=== PATIENT | female | born 1950 | race Caucasian/White ===

== ENCOUNTER 2019-02-24 18:00 | Emergency (ER) | payer MEDICARE, BC ==
[2019-02-24] MEDS ORDERED: Lidocaine 1% 10 ML MDV INJECT ONE (18:22)
[2019-02-24] MEDS ORDERED: Bupivacaine 0.5% 10 ML SDV INJECT ONE (18:25)
--- NOTE | 2019-02-24 18:30 | EDM.PDOC ---
ED HPI GENERAL MEDICAL PROBLEM - General Chief Complaint: Laceration Stated Complaint: R RING FINGER LAC Time Seen by Provider: 02/24/19 18:06 Source of Information: Reports: Patient, RN Notes Reviewed History Limitations: Reports: No Limitations - History of Present Illness INITIAL COMMENTS - FREE TEXT/NARRATIVE: Patient is a 68-year-old female who presents to the ED for the evaluation of a right ring finger laceration. The patient states that she was getting some clothing [place] on a makeshift metal clothing rack when a part of the clothing rack came undone and ended up lacerating her right ring finger. This is the medial portion, over the PIP joint. 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 She is able to move it the same amount she could before. There is some mild bleeding, however is under control at this time. She believes she is up-to-date on her tetanus booster. The laceration is approximately 3cm in length and is curvilinear, with a skin flap. The entire laceration is essentially a skin flap. The patient notes that she is right-hand dominant. Right Finger-Ring Pain Score (Numeric/FACES): 4 - Related Data Allergies Allergy/AdvReac Type Severity Reaction Status Date / Time No Known Allergies Allergy Verified 02/24/19 18:09 Home Meds: Home Meds Hydroxyurea [Hydrea] 500 mg PO DAILY 02/24/19 [History] Past Medical History - Past Health History Medical/Surgical History: Denies Medical/Surgical History Hematologic History: Reports: Polycythemia Social & Family History - Tobacco Use Smoking Status *Q: Never Smoker ED ROS GENERAL - Review of Systems Review Of Systems: See Below Constitutional: Reports: No Symptoms HEENT: Reports: No Symptoms Respiratory: Reports: No Symptoms Cardiovascular: Reports: No Symptoms Endocrine: Reports: No Symptoms GI/Abdominal: Reports: No Symptoms : Reports: No Symptoms Musculoskeletal: Reports: No Symptoms Skin: Reports: Wound (3cm curvilinear lac to medial PIP on R ring finger.) Neurological: Reports: No Symptoms. Denies: Numbness, Tingling Psychiatric: Reports: No Symptoms Hematologic/Lymphatic: Reports: No Symptoms ED EXAM, SKIN/RASH Exam: See Below Exam Limited By: No Limitations General Appearance: Alert, WD/WN, No Apparent Distress Respiratory/Chest: No Respiratory Distress, Lungs Clear, Normal Breath Sounds, No Accessory Muscle Use, Chest Non-Tender Cardiovascular: Normal Peripheral Pulses, Regular Rate, Rhythm, No Murmur Extremities: Normal Inspection, Normal Range of Motion (within her normal capabilities), Normal Capillary Refill Neurological: Oriented, Normal Cognition, No Motor/Sensory Deficits Psychiatric: Normal Affect, Normal Mood Skin: Warm, Dry, Normal Color, No Rash, Wound/Incision (3cm curvilinear lac to medial PIP on R ring finger.) ED SKIN PROCEDURES - Laceration/Wound Repair Right Medial Digit - 4th (Ring) Lac/Wound length In cm: 3 Appearance: Subcutaneous, Irregular (curvilinear), Clean Distal NVT: Neuro & Vascular Intact, No Tendon Injury Anesthetic Type: Digital Local Anesthesia - Lidocaine (Xylocaine): Other (1% plain and 0.5% Bupivicaine) Local Anesthesia - Bupivicaine (Marcaine): 0.5% Plain Local Anesthetic Volume: Other (8) Skin Prep: Chlorhexidine (Hibiciens) Saline Irrigation (cc's): 250 (copious) Exploration/Debridement/Repair: Wound Explored, In a Bloodless Field, Explored to Base, Other (the laceration is essentially one large skin flap) Closed with: Sutures Suture Size: other (5.0) # of Sutures: 8 Suture Type: Prolene, Interrupted, Simple Sterile Dressing Applied: Nurse Tetanus Status Addressed: Yes Complications: No Course - Vital Signs Last Recorded V/S: Last Vital Signs Temp 98.5 F 02/24/19 18:10 Pulse 88 02/24/19 18:10 Resp 18 02/24/19 18:10 BP 148/91 H 02/24/19 18:10 Pulse Ox 100 02/24/19 18:10 - Orders/Labs/Meds Meds: Medications Discontinued Medications Generic Name Dose Route Start Last Admin Trade Name Nicholas PRN Reason Stop Dose Admin Bupivacaine HCl 10 ml 02/24/19 18:25 02/24/19 18:45 Sensorcaine-Mpf 0.5% INJECT 02/24/19 18:26 10 ml ONETIME ONE Administration Lidocaine HCl 10 ml 02/24/19 18:22 02/24/19 18:45 Xylocaine 1% INJECT 02/24/19 18:23 10 ml ONETIME ONE Administration Departure - Departure Time of Disposition: 19:09 Disposition: Home, Self-Care 01 Condition: Fair Clinical Impression: Laceration of right ring finger Qualifiers: Encounter type: initial encounter Damage to nail status: without damage Foreign body presence: without foreign body Qualified Code(s): S61.214A - Laceration without foreign body of right ring finger without damage to nail, initial encounter - Discharge Information *PRESCRIPTION DRUG MONITORING PROGRAM REVIEWED*: No *COPY OF PRESCRIPTION DRUG MONITORING REPORT IN PATIENT SHEA: No Instructions: Stitches, [place], or Adhesive Wound Closure, [id number] Referrals: Matthias Banuelos PA [Primary Care Provider] - Forms: ED Department Discharge Additional Instructions: You have been evaluated in the ED for your laceration. Sutures will need to stay in for 14 days (03/07/14) You may return to the ED or clinic for removal. Please keep this area clean and dry, you may cleanse with regular soap and water. No vigorous scrubbing. Please return to ED if your symptoms change or worsen.
== END 2019-02-24 19:20 | disposition home or self-care (01) ==
LOC: JD.ED 18:00
DX: S61.214A Laceration without foreign body of right ring finger without damage to nail, initial encounter (principal); Z79.899 Other long term (current) drug therapy; W26.8XXA Contact with other sharp object(s), not elsewhere classified, initial encounter
CPT/HCPCS: 12002; 99282; J2001; J3490

== ENCOUNTER 2019-11-17 12:35 | Inpatient (IN) | payer MEDICARE, BC, OTHER ==
[2019-11-17] MEDS ORDERED: Sodium Chloride 0.9% 10 ML Syringe FLUSH PRN (13:18)
[2019-11-17] MEDS ORDERED: Diltiazem 50 MG/10 ML SDV IVPUSH ONE (13:41)
--- NOTE | 2019-11-17 13:45 | EDM.PDOC ---
ED HPI GENERAL MEDICAL PROBLEM - General Chief Complaint: Cardiovascular Problem Stated Complaint: SOB Time Seen by Provider: 11/17/19 13:17 Source of Information: Reports: Patient, RN Notes Reviewed History Limitations: Reports: No Limitations - History of Present Illness INITIAL COMMENTS - FREE TEXT/NARRATIVE: Patient is a 69-year-old female who presents to the ED for evaluation of her ongoing shortness of breath. Patient notes she has been having issues with increased dyspnea on exertion for the past month or so. She states that she walks daily, and notes that this is getting increasingly bothersome for her, she states that she gets more winded with activity, and sometimes even at rest. She states that a few nights ago she had some shortness of breath, and some chest discomfort/feelings of her heart beating rapidly while she was sleeping, she states that she elevated her head and this seemed to help some of the symptoms. Patient notes she is a fairly healthy active lady, and has not had any issues with this prior to this. She denies any cardiac history or lung history. She takes only an aspirin on a daily basis for any sort of blood thinning/anticoagulation. She denies history of atrial fibrillation. Patient complains of shortness of breath with exercise, sometimes at rest, increased generalized fatigue. She is not complaining of any chest pain, left arm/jaw pain, or any nausea/vomiting/diarrhea at today's visit. Blood pressure is within normal limits at 114/94. Heart rate is steady at 143, patient does not appear to be in any distress at this time. - Related Data Allergies Allergy/AdvReac Type Severity Reaction Status Date / Time No Known Allergies Allergy Verified 02/24/19 18:09 Home Meds: Home Meds Hydroxyurea [Hydrea] 500 mg PO DAILY 02/24/19 [History] Ascorbate Calcium [Vitamin C] 500 mg PO DAILY 11/17/19 [History] Aspirin [Halfprin] 81 mg PO DAILY 11/17/19 [History] Cholecalciferol (Vitamin D3) [Vitamin D3] 1,000 unit PO DAILY 11/17/19 [History] Fish Oil/[place]-3 Fatty Acids [Fish Oil 1,000 MG] 1,000 mg PO DAILY 11/17/19 [ History] Progesterone, Micronized [Progesterone] 200 mg PO DAILY 11/17/19 [History] Past Medical History Hematologic History: Reports: Polycythemia, Other (See Below) Other Hematologic History: hydrea Social & Family History - Tobacco Use Smoking Status *Q: Never Smoker - Caffeine Use Caffeine Use: Reports: Coffee, Tea - Recreational Drug Use Recreational Drug Use: No ED ROS GENERAL - Review of Systems Review Of Systems: See Below Constitutional: Denies: Fever, Chills Respiratory: Reports: Shortness of Breath. Denies: Cough Cardiovascular: Reports: Dyspnea on Exertion, Palpitations. Denies: Chest Pain , Blood Pressure Problem, Edema, Lightheadedness, Syncope GI/Abdominal: Denies: Abdominal Pain, Constipation, Diarrhea, Nausea, Vomiting ED EXAM, GENERAL - Physical Exam Exam: See Below Exam Limited By: No Limitations General Appearance: Alert, WD/WN, No Apparent Distress Eye Exam: Bilateral Eye: EOMI, Normal Inspection, PERRL Ears: Normal External Exam Nose: Normal Inspection Throat/Mouth: Normal Inspection, Normal Lips, Normal Teeth, Normal Gums, Normal Oropharynx, Normal Voice, No Airway Compromise Head: Atraumatic, Normocephalic Neck: Normal Inspection Respiratory/Chest: No Respiratory Distress, Lungs Clear, Normal Breath Sounds, No Accessory Muscle Use, Chest Non-Tender Cardiovascular: Normal Peripheral Pulses, No Edema, Tachycardia, Other ( regularly irregular rhythm) GI/Abdominal: Normal Bowel Sounds, Soft, Non-Tender, No Distention, No Mass Extremities: Normal Inspection, Normal Capillary Refill Neurological: Alert, Oriented, Normal Cognition, No Motor/Sensory Deficits Psychiatric: Normal Affect, Normal Mood Skin Exam: Warm, Dry, Intact, Normal Color, No Rash EKG INTERPRETATION EKG Date: 11/17/19 Time: 13:06 Rhythm: NSR Rate (Beats/Min): 143 [place]: Normal P-Wave: Present QRS: Normal ST-T: Normal QT: Prolonged (prolonged) Comparison: Change From Previous EKG EKG Interpretation Comments: Atrial fibrillation noted with regularly irregular rhythm, no acute ischemia noted. Reviewed by myself and Dr. Min. Course - Vital Signs Last Recorded V/S: Last Vital Signs Temp 97.6 F 11/17/19 13:01 Pulse 143 H 11/17/19 13:01 Resp 20 11/17/19 13:01 BP 114/94 H 11/17/19 13:01 Pulse Ox 93 L 11/17/19 13:01 - Orders/Labs/Meds Orders: Active Orders 24 hr Category Date Time Status EKG Documentation Completion [RC] STAT Care 11/17/19 13:18 Active Peripheral IV Care [RC] . DIRECTED Care 11/17/19 13:18 Active PHOSPHORUS [CHEM] Stat Lab 11/17/19 16:17 Ordered T4 FREE [CHEM] Stat Lab 11/17/19 13:10 Received Diltiazem 125 mg Med 11/17/19 13:45 Active Sodium Chloride 0.9% [Normal Saline] 100 ml IV TITRATE Sodium Chloride 0.9% [Saline Flush] Med 11/17/19 13:18 Active 10 ml FLUSH ASDIRECTED PRN Peripheral IV Insertion Adult [OM.PC] Stat Oth 11/17/19 13:18 Ordered Medication Orders Diltiazem HCl 125 mg/ Sodium (Chloride) 125 mls @ 10 mls/hr IV TITRATE TERRENCE; Protocol Last Admin: 11/17/19 14:31 Dose: 10 mg/hr, 10 mls/hr Sodium Chloride (Saline Flush) 10 ml FLUSH ASDIRECTED PRN PRN Reason: Keep Vein Open Last Admin: 11/17/19 15:34 Dose: 10 ml Labs: Laboratory Tests 11/17/19 11/17/19 11/17/19 Range/Units 13:10 13:10 13:10 WBC 5.73 (3.98-10.04) K/mm3 RBC 4.28 (3.98-5.22) M/mm3 Hgb 13.5 (11.2-15.7) gm/dl Hct 42.9 (34.1-44.9) % MCV 100.2 H (79.4-94.8) fl MCH 31.5 (25.6-32.2) pg MCHC 31.5 L (32.2-35.5) g/dl RDW Std Deviation 47.8 H (36.4-46.3) fL Plt Count 351 (182-369) K/mm3 MPV 11.6 (9.4-12.3) fl Neutrophils % (Manual) 66 H (40-60) % Band Neutrophils % 0 (0-10) % Lymphocytes % (Manual) 24 (20-40) % Atypical Lymphs % 0 % Monocytes % (Manual) 8 (2-10) % Eosinophils % (Manual) 2 (0.7-5.8) % Basophils % (Manual) 0 L (0.1-1.2) Platelet Estimate Adequate Anisocytosis 1+ slight Macrocytosis 2+ moderate RBC Morph Comment Not Reportable PT 11.0 (9.7-12.0) SECONDS INR 1.01 APTT 26 (22-31) SECONDS Sodium 145 (136-145) mEq/L Potassium 4.4 (3.5-5.1) mEq/L Chloride 109 H (98-107) mEq/L Carbon Dioxide 23 (21-32) mEq/L Anion Gap 17.4 H (5-15) BUN 16 (7-18) mg/dL Creatinine 0.9 (0.55-1.02) mg/dL Est Cr Clr Drug Dosing 55.23 mL/min Estimated GFR (MDRD) > 60 (>60) mL/min BUN/Creatinine Ratio 17.8 (14-18) Glucose 126 H (80-115) mg/dL Calcium 9.1 (8.5-10.1) mg/dL Magnesium 1.8 (1.8-2.4) mg/dl Total Bilirubin 0.8 (0.2-1.0) mg/dL AST 25 (15-37) U/L ALT 68 H (14-59) U/L Alkaline Phosphatase 58 (46-116) U/L Troponin I < 0.017 (0.00-0.056) ng/mL NT-Pro-B Natriuret Pep (0-125) pg/mL Total Protein 7.0 (6.4-8.2) g/dl Albumin 3.7 (3.4-5.0) g/dl Globulin 3.3 gm/dL Albumin/Globulin Ratio 1.1 (1-2) TSH 3rd Generation 7.203 H (0.358-3.74) uIU/mL 11/17/19 Range/Units 13:10 WBC (3.98-10.04) K/mm3 RBC (3.98-5.22) M/mm3 Hgb (11.2-15.7) gm/dl Hct (34.1-44.9) % MCV (79.4-94.8) fl MCH (25.6-32.2) pg MCHC (32.2-35.5) g/dl RDW Std Deviation (36.4-46.3) fL Plt Count (182-369) K/mm3 MPV (9.4-12.3) fl Neutrophils % (Manual) (40-60) % Band Neutrophils % (0-10) % Lymphocytes % (Manual) (20-40) % Atypical Lymphs % % Monocytes % (Manual) (2-10) % Eosinophils % (Manual) (0.7-5.8) % Basophils % (Manual) (0.1-1.2) Platelet Estimate Anisocytosis Macrocytosis RBC Morph Comment PT (9.7-12.0) SECONDS INR APTT (22-31) SECONDS Sodium (136-145) mEq/L Potassium (3.5-5.1) mEq/L Chloride (98-107) mEq/L Carbon Dioxide (21-32) mEq/L Anion Gap (5-15) BUN (7-18) mg/dL Creatinine (0.55-1.02) mg/dL Est Cr Clr Drug Dosing mL/min Estimated GFR (MDRD) (>60) mL/min BUN/Creatinine Ratio (14-18) Glucose (80-115) mg/dL Calcium (8.5-10.1) mg/dL Magnesium (1.8-2.4) mg/dl Total Bilirubin (0.2-1.0) mg/dL AST (15-37) U/L ALT (14-59) U/L Alkaline Phosphatase (46-116) U/L Troponin I (0.00-0.056) ng/mL NT-Pro-B Natriuret Pep 2020 H (0-125) pg/mL Total Protein (6.4-8.2) g/dl Albumin (3.4-5.0) g/dl Globulin gm/dL Albumin/Globulin Ratio (1-2) TSH 3rd Generation (0.358-3.74) uIU/mL Meds: Medications Generic Name Dose Route Start Last Admin Trade Name Freq PRN Reason Stop Dose Admin Diltiazem HCl 125 mg/ Sodium 125 mls @ 10 mls/hr 11/17/19 13:45 11/17/19 14: 31 Chloride IV 10 mg/hr TITRATE TERRENCE 10 mls/hr Administration Protocol 10 MG/HR Sodium Chloride 10 ml 11/17/19 13:18 11/17/19 15:34 Saline Flush FLUSH 10 ml ASDIRECTED PRN Administration Keep Vein Open Discontinued Medications Generic Name Dose Route Start Last Admin Trade Name Nicholas PRN Reason Stop Dose Admin Diltiazem HCl 10 mg 11/17/19 13:41 11/17/19 13:50 Cardizem IVPUSH 11/17/19 13:42 10 mg ONETIME ONE Administration Furosemide 40 mg 11/17/19 14:41 11/17/19 15:34 Lasix IVPUSH 11/17/19 14:42 40 mg NOW ONE Administration - Re-Assessments/Exams Free Text/Narrative Re-Assessment/Exam: 11/17/19 13:48 Patient presents to the ED for evaluation of her ongoing shortness of breath. EKG, does demonstrate atrial fibrillation at a rate of 143, no obvious signs of ischemia. This is new onset for the patient, she does not relate a history of this. Further labs will be obtained as well, I did talk case over with Dr. Min, and he suggests 10 mg Cardizem bolus, and 10 mg Cardizem drip to be started to try to control rate at this time, with the possibility of ICU admission needed. 11/17/19 16:19 The patient's laboratory evaluation demonstrated an elevated BNP at 2020, elevated TSH at over 7, troponins negative, and no other metabolic abnormalities or abnormalities on the CBC were noted. Patient's case was discussed with Dr. Rueda, for possible admission, and she does tentatively except for ICU admission at this time. She will be in to evaluate the patient. Of note patient has responded nicely to the Cardizem, her heart rate is in the low 100s systolically, and her blood pressure is stable. Departure - Departure Time of Disposition: 16:20 Disposition: Admitted As Inpatient 66 Condition: Fair Clinical Impression: Atrial fibrillation, new onset Referrals: Gris Bridges MD [Primary Care Provider] - Forms: ED Department Discharge Sepsis Event Note - Evaluation Sepsis Screening Result: No Definite Risk - Focused Exam Vital Signs: Vital Signs Temp Pulse Resp BP Pulse Ox 11/17/19 13:01 97.6 F 143 H 20 114/94 H 93 L Date Exam was Performed: 11/17/19 Time Exam was Performed: 16:19 - My Orders Last 24 Hours: My Active Orders 11/17/19 13:18 EKG Documentation Completion [RC] STAT Peripheral IV Care [RC] . DIRECTED Sodium Chloride 0.9% [Saline Flush] 10 ml FLUSH ASDIRECTED PRN Peripheral IV Insertion Adult [OM.PC] Stat 11/17/19 13:45 Diltiazem 125 mg Sodium Chloride 0.9% [Normal Saline] 100 ml IV TITRATE 11/17/19 16:17 PHOSPHORUS [CHEM] Stat - Assessment/Plan Last 24 Hours: My Active Orders 11/17/19 13:18 EKG Documentation Completion [RC] STAT Peripheral IV Care [RC] . DIRECTED Sodium Chloride 0.9% [Saline Flush] 10 ml FLUSH ASDIRECTED PRN Peripheral IV Insertion Adult [OM.PC] Stat 11/17/19 13:45 Diltiazem 125 mg Sodium Chloride 0.9% [Normal Saline] 100 ml IV TITRATE 11/17/19 16:17 PHOSPHORUS [CHEM] Stat
[2019-11-17] MEDS: Diltiazem 125 MG in Sodium Chloride 0.9% 100 ML IV SCH (14:31)
--- NOTE | 2019-11-17 14:39 | CR ---
Chest: PA and lateral views of the chest were obtained. Comparison: No prior chest x-ray is available. Heart is enlarged. Pulmonary vessels are felt to be slightly congested. Lungs otherwise are clear. Bony structures appear within normal limits for the patient's age. Impression: 1. Findings suspicious for mild CHF. Diagnostic code #3 This report was dictated in MDT
[2019-11-17] MEDS ORDERED: Furosemide 40 MG/4 ML VIAL IVPUSH ONE (14:41)
[2019-11-17] MEDS ORDERED: Ondansetron 4 MG Tab.DIS PO PRN (16:42)
[2019-11-17] MEDS ORDERED: Ondansetron 4 MG/2 ML SDV IV PRN (16:42)
--- NOTE | 2019-11-17 16:46 | PCM.HP.2 ---
H&P History of Present Illness - General Date of Service: 11/17/19 Admit Problem/Dx: Admission Diagnosis/Problem Admission Diagnosis/Problem Atrial fibrillation - History of Present Illness Initial Comments - Free Text/Narative: This is a 69 year old female with past medical history of p vera on hydroxyurea who comes to the ED complaining of worsening shortness of breath and chest pain for a couple of days. As per patient she is very active with daily walks and/or bicycle rides and she was in her usual health up until early September. She notes that she started having worsening shortness of breath and inability to complete usual walking distance as well as fatigue, which she attributed to being out of shape adter gaining a couple of pounds over the winter. These symptoms however did not subside and she started noticing her fitbit was having higher heart rates than normal. The past 2 days she has been having palpitations and chest discomfort. She described the chest discomfort as pressure, located in center chest, without radiation graded 5/10, lasting for about an hour, went away with sitting down, happened while she was sleeping associated with increased fatigue. / Once she noticed she wasn't getting better she called her PCP today who referred her to ED for further evaluation. Headache Pain Score (Numeric/FACES): 2 - Related Data Allergies/Adverse Reactions: Allergies Allergy/AdvReac Type Severity Reaction Status Date / Time No Known Allergies Allergy Verified 11/17/19 18:04 Home Medications: Home Meds Hydroxyurea [Hydrea] 500 mg PO DAILY 02/24/19 [History] Ascorbate Calcium [Vitamin C] 500 mg PO DAILY 11/17/19 [History] Aspirin [Halfprin] 81 mg PO DAILY 11/17/19 [History] Cholecalciferol (Vitamin D3) [Vitamin D3] 1,000 unit PO DAILY 11/17/19 [History] Fish Oil/[place]-3 Fatty Acids [Fish Oil 1,000 MG] 1,000 mg PO DAILY 11/17/19 [ History] Progesterone, Micronized [Progesterone] 150 mg PO DAILY 11/17/19 [History] Past Medical History - Past Health History Medical/Surgical History: Denies Medical/Surgical History Hematologic History: Reports: Polycythemia, Other (See Below) Other Hematologic History: hydrea Social & Family History - Tobacco Use Smoking Status *Q: Never Smoker - Caffeine Use Caffeine Use: Reports: Coffee, Tea - Recreational Drug Use Recreational Drug Use: No H&P Review of Systems - Review of Systems: Review Of Systems: See Below General: Reports: Malaise, Weakness, Fatigue. Denies: Fever, Chills, Night Sweats, Diaphoresis, Decreased Appetite, Weight Loss, Weight Gain HEENT: Denies: Dysphasia, Ear Pain, Eye Pain, Glasses, Headaches, Hearing Changes, Rhinitis, Post Nasal Drip, Sinus Congestion, Sore Throat, Vertigo, Visual Changes Pulmonary: Reports: Shortness of Breath. Denies: Wheezing, Pleuritic Chest Pain , Cough, Sputum, Hemoptysis Cardiovascular: Reports: Chest Pain, Palpitations, Dyspnea on Exertion. Denies : Orthopnea, PND, Edema, Lightheadedness, Syncope, Claudication, Blood Pressure Problem Gastrointestinal: Denies: Abdominal Pain, Anorexia, Black Stool, Bloody Stool, Constipation, Diarrhea, Decreased Appetite, Difficulty Swallowing, Distension, Flatus, Hematemesis, Hematochezia, Melena, Nausea, Vomiting Genitourinary: Denies: Dysuria, Frequency, Burning, Pain, Urgency, Incontinence , Hematuria Musculoskeletal: Denies: Joint Pain, Joint Swelling, Muscle Pain, Muscle Stiffness Skin: Denies: Cyanosis, Jaundice, Mottled, Pallor, Diaphoresis Psychiatric: Denies: Confusion, Depression, Mood Lability, Anxiety Neurological: Denies: Confusion, Dizziness, Headache, Numbness, Paresthesia Exam - Exam Exam: See Below - Vital Signs Vital Signs: Last Vital Signs Temp 97.6 F 11/17/19 13:01 Pulse 143 H 11/17/19 13:01 Resp 20 11/17/19 13:01 BP 114/94 H 11/17/19 13:01 Pulse Ox 93 L 11/17/19 13:01 Weight: 92.533 kg - Exam General: Alert, Oriented. No: Cooperative, Mild Distress, Moderate Distress, Severe Distress HEENT: Conjunctiva Clear, EACs Clear, EOMI, Mucosa Moist & [place] Neck: Supple, Trachea Midline, +2 Carotid Pulse wo Bruit, Full Range of Motion. No: Lymphadenopathy Lungs: Clear to Auscultation, Normal Respiratory Effort. No: Crackles, Rales, Rhonchi, Rub, Wheezing Cardiovascular: Irregular Rhythm, Tachycardia. No: Systolic Murmur, Diastolic Murmur, Rubs, Gallop/S3, Gallop/S4 GI/Abdominal Exam: Normal Bowel Sounds, Soft, Non-Tender. No: Distended, Guarding, Rigid, Rebound Back Exam: Normal Inspection. No: CVA Tenderness (L), CVA Tenderness (R), Paraspinal Tenderness, Vertebral Tenderness Extremities: Normal Inspection, Normal Range of Motion, Non-Tender, No Pedal Edema, Normal Capillary Refill - Patient Data Result Diagrams: 11/18/19 05:49 11/18/19 05:49 Sepsis Event Note - Evaluation Sepsis Screening Result: No Definite Risk - Problem List (1) Atrial fibrillation with RVR SNOMED Code(s): 898055960373946 ICD Code: I48.91 - UNSPECIFIED ATRIAL FIBRILLATION Status: Acute Current Visit: Yes (2) Macrocytosis without anemia SNOMED Code(s): 532868727 ICD Code: D75.89 - OTHER SPECIFIED DISEASES OF BLOOD AND BLOOD-FORMING ORGANS Status: Acute Current Visit: Yes (3) Obesity (BMI 30.0-34.9) SNOMED Code(s): 819105323400187 ICD Code: E66.9 - OBESITY, UNSPECIFIED Status: Acute Current Visit: Yes (4) Hematologic disorder SNOMED Code(s): 044956840 ICD Code: D75.9 - DISEASE OF BLOOD AND BLOOD-FORMING ORGANS, UNSPECIFIED Status: Acute Current Visit: Yes (5) Elevated TSH SNOMED Code(s): 266350542 ICD Code: R79.89 - OTHER SPECIFIED ABNORMAL FINDINGS OF BLOOD CHEMISTRY Status: Acute Current Visit: Yes Problem List Initiated/Reviewed/Updated: Yes Assessment/Plan Comment:: ASSESSMENT - Worsening shortness of breath and poor exercise tolerance - Rate of 143 on admission to ED - EKG compatible with Afib RVR - Given IV diltiazem - New onset - Uses hydroxyurea for hematologic disorder PLAN BY PROBLEM New onset atrial fibrillation with RVR - Diltiazem drip for rate control - Full dose Lovenox - Echocardiogram once rate controlled Elevated TSH - Repeat level - Free T4 Hematologic disorder Macrocytosis without anemia - Request records Obesity (BMI 30.0-34.9) - STOP BANG score PROPHYLAXIS DVT- Full dose lovenox GI- not indicated CODE STATUS: FULL CODE DISPOSITION: Patient will be admitted to ICU for Diltiazem drip and rate control. - Mortality Measure Prognosis:: Good
[2019-11-17] MEDS ORDERED: Magnesium Sulfate/Water 4 GM in Premix Bag 1 BAG IV ONE (17:49)
[2019-11-17] MEDS: Acetaminophen 325 MG Tab PO PRN (20:01)
[2019-11-18] MEDS: Diltiazem 125 MG in Sodium Chloride 0.9% 100 ML IV SCH ×2 (00:05→18:28)
[2019-11-18] MEDS: Acetaminophen 325 MG Tab PO PRN ×2 (04:20→18:27)
[2019-11-18] MEDS: Enoxaparin 100 MG/1 ML Syringe SUBCUT SCH ×2 (09:04→20:23)
[2019-11-18] MEDS ORDERED: Aspirin 81 MG Tab.EC PO SCH (09:30)
[2019-11-18] MEDS: Hydroxyurea 500 MG Cap PO SCH (09:41)
[2019-11-18] MEDS ORDERED: PROGESTERONE 150 MG PO SCH (09:45)
--- NOTE | 2019-11-18 18:54 | PCM.PN ---
- General Info Date of Service: 11/18/19 Subjective Update: BM yesterday Slept so so Denies chest pain or palpitations Denies SOB Episode of hypoxemia overnight, started on NC - Patient Data Vitals - Most Recent: Last Vital Signs Temp 97.8 F 11/18/19 04:00 Pulse 108 H 11/17/19 17:15 Resp 18 11/18/19 04:00 BP 110/64 11/18/19 18:01 Pulse Ox 92 L 11/18/19 18:01 Weight - Most Recent: 92.533 kg - Exam Quality Assessment: Supplemental Oxygen General: Alert, Oriented, Cooperative, No Acute Distress HEENT: Pupils Equal, Pupils Reactive, EOMI, Mucous Membr. Moist/[place] Neck: No JVD, No Thyromegaly, +2 Carotid Pulse wo Bruit. No: Lymphadenopathy Lungs: Clear to Auscultation, Normal Respiratory Effort. No: Decreased Breath Sounds, Crackles, Rales, Rhonchi, Rub, Stridor, Wheezing Cardiovascular: Irregular Rhythm, Tachycardia. No: Murmurs, Gallops, Rubs GI/Abdominal Exam: Normal Bowel Sounds, Soft, Non-Tender. No: Distended, Guarding, Rigid, Rebound Back Exam: No: CVA Tenderness (L), CVA Tenderness (R), Paraspinal Tenderness, Vertebral Tenderness Extremities: Normal Inspection, Normal Range of Motion, Non-Tender, No Pedal Edema, Normal Capillary Refill Neurological: No New Focal Deficit Sepsis Event Note - Evaluation Sepsis Screening Result: No Definite Risk - Focused Exam Vital Signs: x - Problem List & Annotations (1) Atrial fibrillation with RVR SNOMED Code(s): 263633510961176 Code(s): I48.91 - UNSPECIFIED ATRIAL FIBRILLATION Status: Acute Current Visit: Yes (2) Macrocytosis without anemia SNOMED Code(s): 914235009 Code(s): D75.89 - OTHER SPECIFIED DISEASES OF BLOOD AND BLOOD-FORMING ORGANS Status: Acute Current Visit: Yes (3) Obesity (BMI 30.0-34.9) SNOMED Code(s): 275875818978510 Code(s): E66.9 - OBESITY, UNSPECIFIED Status: Acute Current Visit: Yes (4) Hematologic disorder SNOMED Code(s): 622938844 Code(s): D75.9 - DISEASE OF BLOOD AND BLOOD-FORMING ORGANS, UNSPECIFIED Status: Acute Current Visit: Yes (5) Elevated TSH SNOMED Code(s): 512552576 Code(s): R79.89 - OTHER SPECIFIED ABNORMAL FINDINGS OF BLOOD CHEMISTRY Status: Acute Current Visit: Yes (6) Acute hypoxemic respiratory failure SNOMED Code(s): 108342973 Code(s): J96.01 - ACUTE RESPIRATORY FAILURE WITH HYPOXIA Status: Acute Current Visit: Yes - Problem List Review Problem List Initiated/Reviewed/Updated: Yes - Plan Plan:: ASSESSMENT - Worsening shortness of breath and poor exercise tolerance - Rate of 143 on admission to ED - EKG compatible with Afib RVR - Given IV diltiazem - New onset - Uses hydroxyurea for hematologic disorder Day 1 - O2 sat dropped to 88 overnight, started on NC 2L - Rate trend 66-120 - BP trend 81-118/57-94 - No subjective shortness of breath PLAN BY PROBLEM New onset atrial fibrillation with RVR - Diltiazem drip for rate control - Full dose Lovenox - Echocardiogram once rate controlled Acute hypoxemic respiratory failure - ABGs - Wean off NC as tolerated - Incentive spirometry Elevated TSH - Repeat level - Free T4 Hematologic disorder Macrocytosis without anemia - Request records Obesity (BMI 30.0-34.9) - STOP BANG score PROPHYLAXIS DVT- Full dose lovenox GI- not indicated CODE STATUS: FULL CODE DISPOSITION: Patient will remain admitted to ICU for Diltiazem drip and rate control.
[2019-11-18] MEDS: Diltiazem IR 30 MG Tab PO SCH (19:47)
[2019-11-18] MEDS: Aspirin 81 MG Tab.EC PO SCH (20:22)
[2019-11-18] MEDS: PROGESTERONE 150 MG PO SCH (20:49)
[2019-11-19] MEDS: Diltiazem IR 30 MG Tab PO SCH ×5 (01:11→17:02)
[2019-11-19] MEDS: Acetaminophen 325 MG Tab PO PRN ×2 (08:23→16:28)
[2019-11-19] MEDS: Cholecalciferol (Vitamin D3) 25 MCG Tab PO SCH (08:24)
[2019-11-19] MEDS: Ascorbic Acid 500 MG Tab PO SCH (08:24)
[2019-11-19] MEDS: Fish Oil/Omega-3 Fatty Acids 1 Gm Cap PO SCH (08:24)
[2019-11-19] MEDS: Enoxaparin 100 MG/1 ML Syringe SUBCUT SCH ×2 (08:26→20:09)
[2019-11-19] MEDS: Hydroxyurea 500 MG Cap PO SCH (08:33)
[2019-11-19] MEDS ORDERED: Sodium Chloride 0.9% 10 ML Syringe FLUSH PRN (17:05)
[2019-11-19] MEDS ORDERED: Iopamidol 755 Mg/ML 100 ML Bottle IVPUSH ONE (17:05)
[2019-11-19] MEDS ORDERED: Sodium Chloride 0.9% 100 ML IV SCH (17:15)
--- NOTE | 2019-11-19 17:26 | CT ---
CT chest Technique: Multiple axial sections were obtained from above the lung apices inferiorly through the lung bases. Intravenous contrast was utilized. Study has been performed as a pulmonary angiogram protocol. Findings: Small bilateral pleural effusions are seen. Heart is enlarged. No pericardial fluid is seen. Aorta shows no aneurysm. Scattered mediastinal lymph nodes are seen which are felt to be within normal limits. No axillary adenopathy is seen. Atelectasis on a compressive basis seen within the right lung base. Pulmonary arteries are well-opacified. No filling defects are seen to indicate pulmonary embolism. No peripheral groundglass findings are seen which be noted with COVID-19 pneumonia. No acute parenchymal changes seen. Impression: 1. Small bilateral pleural effusions with cardiomegaly. Pleural effusions most likely relate to CHF. 2. No findings of COVID-19 pneumonia. 3. No acute parenchymal change is seen. Compressive atelectasis which is felt to be incidental adjacent to the right sided pleural effusion is noted. 4. No findings of pulmonary embolism is seen. Diagnostic code #3 Study was dictated in MDT
[2019-11-19] MEDS: Aspirin 81 MG Tab.EC PO SCH (20:09)
[2019-11-19] MEDS: PROGESTERONE 150 MG PO SCH (20:09)
--- NOTE | 2019-11-19 20:16 | PCM.PN ---
- General Info Date of Service: 11/19/19 Subjective Update: Feeling ok Slept ok Tolerating diet Shortness of breath stable BM last night Ambulating without assistance - Patient Data Vitals - Most Recent: Last Vital Signs Temp 98.4 F 11/19/19 19:49 Pulse 108 H 11/17/19 17:15 Resp 16 11/19/19 19:49 BP 119/71 11/19/19 19:49 Pulse Ox 94 L 11/19/19 19:49 Weight - Most Recent: 93.667 kg - Exam Quality Assessment: Supplemental Oxygen General: Alert, Oriented, Cooperative, No Acute Distress HEENT: Pupils Equal, Pupils Reactive, EOMI, Mucous Membr. Moist/[place] Neck: Supple, Trachea Midline, No JVD, No Thyromegaly. No: Lymphadenopathy Lungs: Normal Respiratory Effort, Crackles. No: Rales, Rhonchi, Rub, Stridor, Wheezing Cardiovascular: Regular Rate, Irregular Rhythm. No: Murmurs, Gallops, Rubs GI/Abdominal Exam: Normal Bowel Sounds, Soft, Non-Tender. No: Distended, Guarding, Rigid, Rebound Back Exam: Normal Inspection. No: CVA Tenderness (L), CVA Tenderness (R), Paraspinal Tenderness, Vertebral Tenderness Extremities: Normal Inspection, Normal Range of Motion, Non-Tender, No Pedal Edema, Normal Capillary Refill Skin: Warm, Intact Neurological: No New Focal Deficit Psy/Mental Status: Alert Sepsis Event Note - Evaluation Sepsis Screening Result: No Definite Risk - Focused Exam Vital Signs: Vital Signs Temp Resp BP BP Pulse Ox Pulse Ox 11/19/19 19:49 98.4 F 16 119/71 94 L 11/19/19 16:00 98.4 F 20 116/59 L 94 L 11/19/19 12:10 90 L 11/19/19 11:42 98.1 F 20 118/60 92 L 11/19/19 09:00 96 11/19/19 08:16 112/59 L 92 L 11/19/19 08:15 92 L 11/19/19 08:14 95 Date Exam was Performed: 11/19/19 Time Exam was Performed: 20:05 - Problem List & Annotations (1) Atrial fibrillation with RVR SNOMED Code(s): 723671400717685 Code(s): I48.91 - UNSPECIFIED ATRIAL FIBRILLATION Status: Acute Current Visit: Yes (2) Macrocytosis without anemia SNOMED Code(s): 292433034 Code(s): D75.89 - OTHER SPECIFIED DISEASES OF BLOOD AND BLOOD-FORMING ORGANS Status: Acute Current Visit: Yes (3) Obesity (BMI 30.0-34.9) SNOMED Code(s): 281138805474118 Code(s): E66.9 - OBESITY, UNSPECIFIED Status: Acute Current Visit: Yes (4) Hematologic disorder SNOMED Code(s): 245003887 Code(s): D75.9 - DISEASE OF BLOOD AND BLOOD-FORMING ORGANS, UNSPECIFIED Status: Acute Current Visit: Yes (5) Elevated TSH SNOMED Code(s): 373657149 Code(s): R79.89 - OTHER SPECIFIED ABNORMAL FINDINGS OF BLOOD CHEMISTRY Status: Acute Current Visit: Yes (6) Acute hypoxemic respiratory failure SNOMED Code(s): 860134546 Code(s): J96.01 - ACUTE RESPIRATORY FAILURE WITH HYPOXIA Status: Acute Current Visit: Yes (7) Hypomagnesemia SNOMED Code(s): 039775846 Code(s): E83.42 - HYPOMAGNESEMIA Status: Acute Current Visit: Yes - Problem List Review Problem List Initiated/Reviewed/Updated: Yes - Plan Plan:: ASSESSMENT Day of admission - Worsening shortness of breath and poor exercise tolerance - Rate of 143 on admission to ED - EKG compatible with Afib RVR - Given IV diltiazem - New onset - Uses hydroxyurea for hematologic disorder Day 1 - O2 sat dropped to 88 overnight, started on NC 2L - Rate trend 66-120 - BP trend 81-118/57-94 - No subjective shortness of breath Day 2 - Transitioned to PO Diltiazem last night at 90mg QID - Drip stopped at 8:50PM - Started incentive spirometer - BP trend 76-112/47-82 - HR trend 67-83 - Put on 3L on NC since 3PM and sat > 90% - UO 1050, 43ml/hr - Mg 1.7 - Patient commented she recently went to [place] and had been having more flu like symptoms--> COVID19 screen was performed PLAN BY PROBLEM New onset atrial fibrillation Rate controlled - Diltiazem 90mg QID - Full dose Lovenox - Echocardiogram in AM - Likely will be able to start Xarelto tonight Acute hypoxemic respiratory failure, no change - CTA to r/o PE - Wean off NC as tolerated - Incentive spirometry - F/U COVID-19 result - Maximum barrier precautions in place Elevated TSH - F/U Repeat TSH and Free T4 Polycythemia Vera Macrocytosis without anemia - Continue home hydroxyurea Obesity (BMI 30.0-34.9) - STOP BANG score RVR resolved PROPHYLAXIS DVT- Full dose lovenox GI- not indicated CODE STATUS: FULL CODE DISPOSITION: Patient will remain in ICU for hypoxemia, likely will be able to be downgraded later on today when she has been off Diltiazem drip for 24 hours.
[2019-11-19] MEDS: Rivaroxaban 10 MG Tab PO SCH (20:46)
[2019-11-20] MEDS: Diltiazem IR 30 MG Tab PO SCH ×2 (00:01→08:51)
[2019-11-20] MEDS: Ascorbic Acid 500 MG Tab PO SCH (08:52)
[2019-11-20] MEDS: Cholecalciferol (Vitamin D3) 25 MCG Tab PO SCH (08:52)
[2019-11-20] MEDS: Hydroxyurea 500 MG Cap PO SCH (08:52)
[2019-11-20] MEDS: Fish Oil/Omega-3 Fatty Acids 1 Gm Cap PO SCH (08:52)
[2019-11-20] MEDS: Acetaminophen 325 MG Tab PO PRN ×3 (08:52→16:20)
[2019-11-20] MEDS ORDERED: Diltiazem IR 60 MG Tab PO SCH (09:00)
[2019-11-20] MEDS ORDERED: Magnesium Sulfate/Water 2 GM in Premix Bag 1 BAG IV ONE (09:41)
[2019-11-20] MEDS ORDERED: Diltiazem IR 30 MG Tab PO SCH (12:00)
--- NOTE | 2019-11-20 16:50 | PCM.PN ---
- General Info Date of Service: 11/20/19 Admission Dx/Problem (Free Text): Admission Diagnosis/Problem Admission Diagnosis/Problem Atrial fibrillation Subjective Update: Patient is feeling well without any shortness of breath, cough, or dyspnea on exertion. She is walking in her room. Diet is good. Functional Status: Reports: Pain Controlled - Review of Systems General: Reports: No Symptoms HEENT: Reports: No Symptoms Pulmonary: Reports: No Symptoms Cardiovascular: Reports: No Symptoms Musculoskeletal: Reports: No Symptoms - Patient Data Vitals - Most Recent: Last Vital Signs Temp 98.4 F 11/20/19 16:00 Pulse 108 H 11/17/19 17:15 Resp 20 11/20/19 16:00 BP 116/76 11/20/19 16:00 Pulse Ox 93 L 11/20/19 16:00 Weight - Most Recent: 207 lb 12.8 oz I&O - Last 24 Hours: Intake & Output 11/20/19 11/20/19 11/20/19 06:59 14:59 22:59 Intake Total 700 180 800 Output Total 450 1200 Balance 250 180 -400 [place] Results Last 24 Hours: Microbiology 11/19/19 08:00 Coronavirus RNA (PCR) - Final Nasopharyngeal Swab Med Orders - Current: Current Medications Acetaminophen (Tylenol) 650 mg PO Q4H PRN PRN Reason: Pain (Mild 1-3)/fever Last Admin: 11/20/19 16:20 Dose: 650 mg Ascorbic Acid (Vitamin C) 500 mg PO DAILY [facility] Last Admin: 11/20/19 08:52 Dose: 500 mg Aspirin (Halfprin) 81 mg PO BEDTIME [facility] Last Admin: 11/19/19 20:09 Dose: 81 mg Cholecalciferol (Vitamin D3) 25 mcg PO DAILY [facility] Last Admin: 11/20/19 08:52 Dose: 25 mcg Diltiazem HCl (Cardizem) 90 mg PO Q6HR [facility] Last Admin: 11/20/19 12:10 Dose: 90 mg Fish Oil (Fish Oil) 1 gm PO DAILY [facility] Last Admin: 11/20/19 08:52 Dose: 1 gm Hydroxyurea (Hydrea) 500 mg PO DAILY [facility] Last Admin: 11/20/19 08:52 Dose: 500 mg Diltiazem HCl 125 mg/ Sodium (Chloride) 125 mls @ 10 mls/hr IV TITRATE [facility]ERR[facility]; Protocol Last Admin: 11/18/19 18:28 Dose: 5 mg/hr, 5 mls/hr Sodium Chloride (Normal Saline) 100 mls @ 60 mls/hr IV ASDIRECTED [facility] Last Admin: 11/19/19 17:12 Dose: 60 mls/hr Progesterone 150 Mg (Cap Ptom) 0 mg PO BEDTIME [facility] Last Admin: 11/19/19 20:09 Dose: 1 mg Ondansetron HCl (Zofran) 4 mg IV Q6H PRN PRN Reason: Nausea/Vomiting Ondansetron HCl (Zofran Odt) 4 mg PO Q6H PRN PRN Reason: nausea, able to take PO Rivaroxaban (Xarelto) 20 mg PO BEDTIME [facility] Last Admin: 11/19/19 20:46 Dose: 20 mg Sodium Chloride (Saline Flush) 10 ml FLUSH ASDIRECTED PRN PRN Reason: Keep Vein Open Last Admin: 11/17/19 15:34 Dose: 10 ml Discontinued Medications Aspirin (Halfprin) 81 mg PO DAILY [facility] Last Admin: 11/18/19 09:43 Dose: Not Given Diltiazem HCl (Cardizem) 10 mg IVPUSH ONETIME ONE Stop: 11/17/19 13:42 Last Admin: 11/17/19 13:50 Dose: 10 mg Diltiazem HCl (Cardizem) 90 mg PO Q6HR [facility] Last Admin: 11/20/19 08:51 Dose: 60 mg Diltiazem HCl (Cardizem) 60 mg PO Q6H [facility] Last Admin: 11/20/19 10:23 Dose: Not Given Enoxaparin Sodium (Lovenox) 90 mg SUBCUT Q12H [facility] Last Admin: 11/19/19 20:09 Dose: 90 mg Furosemide (Lasix) 40 mg IVPUSH NOW ONE Stop: 11/17/19 14:42 Last Admin: 11/17/19 15:34 Dose: 40 mg Magnesium Sulfate 4 gm/ Premix 50 mls @ 12.5 mls/hr IV ONETIME ONE Stop: 11/17/19 21:48 Last Admin: 11/17/19 17:59 Dose: 12.5 mls/hr Magnesium Sulfate 2 gm/ Premix 50 mls @ 25 mls/hr IV ONETIME ONE Stop: 11/20/19 11:40 Last Admin: 11/20/19 10:37 Dose: 25 mls/hr Iopamidol (Isovue-370 (76%)) 100 ml IVPUSH ONETIME ONE Stop: 11/19/19 17:06 Last Admin: 11/19/19 17:12 Dose: 100 ml Progesterone 150 Mg (Ptom) 150 mg PO DAILY [facility] Sodium Chloride (Saline Flush) 10 ml FLUSH ONETIME PRN PRN Reason: Keep Vein Open Stop: 11/19/19 21:00 Last Admin: 11/19/19 17:12 Dose: 10 ml - Exam Quality Assessment: Supplemental Oxygen General: Alert, Oriented HEENT: Pupils Equal, Pupils Reactive, EOMI, Mucous Membr. Moist/[place] Neck: Supple Lungs: Normal Respiratory Effort, Crackles Cardiovascular: Irregular Rhythm Extremities: Normal Inspection, Non-Tender, Pedal Edema (1+ bilateral pitting edema up to her mid thighs) Skin: Warm, Dry, Intact Neurological: No New Focal Deficit Psy/Mental Status: Alert, Normal Affect, Normal Mood Sepsis Event Note - Evaluation Sepsis Screening Result: No Definite Risk - Focused Exam Vital Signs: Vital Signs Temp Resp BP Pulse Ox 11/20/19 16:00 98.4 F 20 116/76 93 L 11/20/19 12:13 98.2 F 18 124/78 93 L 11/20/19 08:30 88 L 11/20/19 08:00 98.7 F 18 119/66 93 L Date Exam was Performed: 11/20/19 Time Exam was Performed: 16:58 - Problem List Review Problem List Initiated/Reviewed/Updated: Yes - My Orders Last 24 Hours: My Active Orders 11/20/19 12:00 Diltiazem IR [Cardizem] 90 mg PO Q6HR - Plan Plan:: ASSESSMENT Day of admission - Worsening shortness of breath and poor exercise tolerance - Rate of 143 on admission to ED - EKG compatible with Afib RVR - Given IV diltiazem - New onset - Uses hydroxyurea for hematologic disorder PLAN BY PROBLEM New onset atrial fibrillation Rate controlled Mild fluid overload secondary to high-output cardiac failure -Changed to diltiazem 24 hours 360 mg daily - Full dose Lovenox - Echocardiogram in AM - Likely will be able to start Xarelto tonight -Lasix 20 mg IV x1 Acute hypoxemic respiratory failure, no change - CTA showed bilateral pleural effusions likely secondary to CHF due to A. fib with RVR - Wean off NC as tolerated - Incentive spirometry - COVID-19 result -negative - Maximum barrier precautions in place Elevated TSH - F/U Repeat TSH and Free T4 Polycythemia Vera Macrocytosis without anemia - Continue home hydroxyurea Obesity (BMI 30.0-34.9) - STOP BANG score RVR resolved PROPHYLAXIS DVT- Full dose lovenox GI- not indicated CODE STATUS: FULL CODE DISPOSITION: Patient will remain in ICU for hypoxemia, likely will be able to be downgraded later on today when she has been off Diltiazem drip for 24 hours.
[2019-11-20] MEDS ORDERED: Furosemide 20 MG/2 ML VIAL IVPUSH ONE (17:00)
[2019-11-20] MEDS ORDERED: Diltiazem 180 MG Cap.CD PO SCH (18:00)
[2019-11-20] MEDS: PROGESTERONE 150 MG PO SCH (20:41)
[2019-11-20] MEDS: Aspirin 81 MG Tab.EC PO SCH (20:42)
[2019-11-20] MEDS: Rivaroxaban 10 MG Tab PO SCH (20:42)
[2019-11-21] MEDS: Fish Oil/Omega-3 Fatty Acids 1 Gm Cap PO SCH (09:15)
[2019-11-21] MEDS: Hydroxyurea 500 MG Cap PO SCH (09:16)
[2019-11-21] MEDS: Cholecalciferol (Vitamin D3) 25 MCG Tab PO SCH (09:16)
[2019-11-21] MEDS: Ascorbic Acid 500 MG Tab PO SCH (09:16)
[2019-11-21] MEDS ORDERED: Furosemide 20 MG/2 ML VIAL IVPUSH ONE (09:37)
--- NOTE | 2019-11-21 12:50 | PCM.DCSUM1 ---
Discharge Summary - Hospital Course HPI Initial Comments: This is a 69 year old female with past medical history of p vera on hydroxyurea who comes to the ED complaining of worsening shortness of breath and chest pain for a couple of days. As per patient she is very active with daily walks and/or bicycle rides and she was in her usual health up until early September. She notes that she started having worsening shortness of breath and inability to complete usual walking distance as well as fatigue, which she attributed to being out of shape adter gaining a couple of pounds over the winter. These symptoms however did not subside and she started noticing her fitbit was having higher heart rates than normal. The past 2 days she has been having palpitations and chest discomfort. She described the chest discomfort as pressure, located in center chest, without radiation graded 5/10, lasting for about an hour, went away with sitting down, happened while she was sleeping associated with increased fatigue. / Once she noticed she wasn't getting better she called her PCP today who referred her to ED for further evaluation. Diagnosis: Stroke: No - Discharge Data Discharge Date: 11/21/19 Discharge Disposition: Home, Self-Care 01 Condition: Good - Referral to Home Health Primary Care Physician: Gris Bridges MD - Patient Summary/Data Hospital Course: Patient was admitted with new onset A. fib with a rate of 143. She was started on a diltiazem drip and rate did trend down to 67-83 by day 2. She was switched over to oral Cardizem. Night before discharge she was placed on Cardizem CD 360 mg, but she did note to have a heart rate down to the 30s in the melanite. She also was found to have oxygen saturations into the mid to upper 80s when she slept. Patient appears to have some component of sleep apnea. She was qualified for oxygen and she did have an O2 drop to 88% with ambulation on the day of discharge. She will go home on 1 L nasal cannula and be seen by her yarn examiner skeins. Echocardiogram was performed on day of discharge. Patient was started on Xarelto 20 mg daily for stroke prophylaxis. Also of note because she had traveled and there was concern about flulike illness she did have a negative screen for COVID-19. - Patient Instructions Diet: Heart Healthy Diet Activity: As Tolerated Driving: May Drive Today Showering/Bathing: May Shower Other/Special Instructions: Please keep your appointment with the yarn examiner skeins on Sunday. - Discharge Plan *PRESCRIPTION DRUG MONITORING PROGRAM REVIEWED*: No *COPY OF PRESCRIPTION DRUG MONITORING REPORT IN PATIENT SHEA: No Prescriptions/Med Rec: dilTIAZem HCL [Tiadylt ER] 300 mg PO DAILY #30 cap.sa.24h Rivaroxaban [Xarelto] 20 mg PO BEDTIME #30 tablet Home Medications: Home Meds Hydroxyurea [Hydrea] 500 mg PO DAILY 02/24/19 [History] Ascorbate Calcium [Vitamin C] 500 mg PO DAILY 11/17/19 [History] Aspirin [Halfprin] 81 mg PO DAILY 11/17/19 [History] Cholecalciferol (Vitamin D3) [Vitamin D3] 1,000 unit PO DAILY 11/17/19 [History] Fish Oil/[place]-3 Fatty Acids [Fish Oil 1,000 MG] 1,000 mg PO DAILY 11/17/19 [ History] Progesterone, Micronized [Progesterone] 150 mg PO DAILY 11/17/19 [History] Rivaroxaban [Xarelto] 20 mg PO BEDTIME #30 tablet 11/21/19 [Rx] dilTIAZem HCL [Tiadylt ER] 300 mg PO DAILY #30 cap.sa.24h 11/21/19 [Rx] Patient Handouts: Sleep Apnea, [id number], Coronavirus Information 11/17/19, Atrial Fibrillation, [id number] Forms: ED Department Discharge Referrals: Gris Bridges MD [Primary Care Provider] - - Discharge Summary/Plan Comment DC Time >30 min.: Yes Discharge Summary/Plan Comment: Discharged home in good condition. Start diltiazem CD 24-hour 300 mg daily Xarelto 20 mg daily Use 1 L of oxygen via nasal cannula when sleeping. Establish with yarn examiner skeins on Sunday. - General Info Date of Service: 11/21/19 Admission Dx/Problem (Free Text: Admission Diagnosis/Problem Admission Diagnosis/Problem Atrial fibrillation Subjective Update: Patient states that she is feeling well today. She denies any shortness of breath, chest pain, palpitations, dyspnea on exertion. - Review of Systems General: Reports: No Symptoms HEENT: Reports: No Symptoms Pulmonary: Reports: No Symptoms Cardiovascular: Reports: No Symptoms Gastrointestinal: Reports: No Symptoms Musculoskeletal: Reports: No Symptoms Psychiatric: Reports: No Symptoms - Patient Data Vitals - Most Recent: Last Vital Signs Temp 98.4 F 11/21/19 09:08 Pulse 83 11/21/19 09:08 Resp 16 11/21/19 03:00 BP 115/66 11/21/19 09:08 Pulse Ox 92 L 11/21/19 10:00 Weight - Most Recent: 207 lb 7.28 oz I&O - Last 24 hours: Intake & Output 11/20/19 11/21/19 11/21/19 22:59 06:59 14:59 Intake Total 1510 240 Output Total 8836 003 2028 Balance -290 -419 -2899 Lab Results - Last 24 hrs: Laboratory Results - last 24 hr 11/21/19 Range/Units 05:10 Sodium 145 (136-145) mEq/L Potassium 4.0 (3.5-5.1) mEq/L Chloride 108 H (98-107) mEq/L Carbon Dioxide 27 (21-32) mEq/L Anion Gap 14.0 (5-15) BUN 14 (7-18) mg/dL Creatinine 0.8 (0.55-1.02) mg/dL Est Cr Clr Drug Dosing 62.13 mL/min Estimated GFR (MDRD) > 60 (>60) mL/min BUN/Creatinine Ratio 17.5 (14-18) Glucose 92 (80-115) mg/dL Calcium 8.7 (8.5-10.1) mg/dL Magnesium 1.9 (1.8-2.4) mg/dl JOSEPH Results - Last 24 hrs: Microbiology 11/19/19 08:00 Coronavirus RNA (PCR) - Final Nasopharyngeal Swab Med Orders - Current: Current Medications Acetaminophen (Tylenol) 650 mg PO Q4H PRN PRN Reason: Pain (Mild 1-3)/fever Last Admin: 11/20/19 16:20 Dose: 650 mg Ascorbic Acid (Vitamin C) 500 mg PO DAILY [facility] Last Admin: 11/21/19 09:16 Dose: 500 mg Aspirin (Halfprin) 81 mg PO BEDTIME [facility] Last Admin: 11/20/19 20:42 Dose: 81 mg Cholecalciferol (Vitamin D3) 25 mcg PO DAILY [facility] Last Admin: 11/21/19 09:16 Dose: 25 mcg Diltiazem HCl (Cardizem Cd) 360 mg PO Q24H [facility] Last Admin: 11/20/19 17:40 Dose: 360 mg Fish Oil (Fish Oil) 1 gm PO DAILY [facility] Last Admin: 11/21/19 09:15 Dose: 1 gm Hydroxyurea (Hydrea) 500 mg PO DAILY [facility] Last Admin: 11/21/19 09:16 Dose: 500 mg Diltiazem HCl 125 mg/ Sodium (Chloride) 125 mls @ 10 mls/hr IV TITRATE TERRENCE; Protocol Last Admin: 11/18/19 18:28 Dose: 5 mg/hr, 5 mls/hr Sodium Chloride (Normal Saline) 100 mls @ 60 mls/hr IV ASDIRECTED [facility] Last Admin: 11/19/19 17:12 Dose: 60 mls/hr Progesterone 150 Mg (Cap Ptom) 0 mg PO BEDTIME [facility] Last Admin: 11/20/19 20:41 Dose: 150 mg Ondansetron HCl (Zofran) 4 mg IV Q6H PRN PRN Reason: Nausea/Vomiting Ondansetron HCl (Zofran Odt) 4 mg PO Q6H PRN PRN Reason: nausea, able to take PO Rivaroxaban (Xarelto) 20 mg PO BEDTIME [facility] Last Admin: 11/20/19 20:42 Dose: 20 mg Sodium Chloride (Saline Flush) 10 ml FLUSH ASDIRECTED PRN PRN Reason: Keep Vein Open Last Admin: 11/17/19 15:34 Dose: 10 ml Discontinued Medications Aspirin (Halfprin) 81 mg PO DAILY [facility] Last Admin: 11/18/19 09:43 Dose: Not Given Diltiazem HCl (Cardizem) 10 mg IVPUSH ONETIME ONE Stop: 11/17/19 13:42 Last Admin: 11/17/19 13:50 Dose: 10 mg Diltiazem HCl (Cardizem) 90 mg PO Q6HR [facility] Last Admin: 11/20/19 08:51 Dose: 60 mg Diltiazem HCl (Cardizem) 60 mg PO Q6H [facility] Last Admin: 11/20/19 10:23 Dose: Not Given Diltiazem HCl (Cardizem) 90 mg PO Q6HR [facility] Last Admin: 11/20/19 12:10 Dose: 90 mg Enoxaparin Sodium (Lovenox) 90 mg SUBCUT Q12H [facility] Last Admin: 11/19/19 20:09 Dose: 90 mg Furosemide (Lasix) 40 mg IVPUSH NOW ONE Stop: 11/17/19 14:42 Last Admin: 11/17/19 15:34 Dose: 40 mg Furosemide (Lasix) 20 mg IVPUSH NOW ONE Stop: 11/20/19 17:01 Last Admin: 11/20/19 17:40 Dose: 20 mg Furosemide (Lasix) 20 mg IVPUSH NOW ONE Stop: 11/21/19 09:38 Last Admin: 11/21/19 09:51 Dose: 20 mg Magnesium Sulfate 4 gm/ Premix 50 mls @ 12.5 mls/hr IV ONETIME ONE Stop: 11/17/19 21:48 Last Admin: 11/17/19 17:59 Dose: 12.5 mls/hr Magnesium Sulfate 2 gm/ Premix 50 mls @ 25 mls/hr IV ONETIME ONE Stop: 11/20/19 11:40 Last Admin: 11/20/19 10:37 Dose: 25 mls/hr Iopamidol (Isovue-370 (76%)) 100 ml IVPUSH ONETIME ONE Stop: 11/19/19 17:06 Last Admin: 11/19/19 17:12 Dose: 100 ml Progesterone 150 Mg (Ptom) 150 mg PO DAILY TERRENCE Sodium Chloride (Saline Flush) 10 ml FLUSH ONETIME PRN PRN Reason: Keep Vein Open Stop: 11/19/19 21:00 Last Admin: 11/19/19 17:12 Dose: 10 ml - Exam Quality Assessment: Reports: Supplemental Oxygen General: Reports: Alert, Oriented HEENT: Reports: Pupils Equal, Mucous Membr. Moist/[place]: Reports: Supple Lungs: Reports: Clear to Auscultation, Normal Respiratory Effort. Denies: Crackles, Rales Cardiovascular: Reports: Irregular Rhythm GI/Abdominal Exam: Normal Bowel Sounds, Soft, Non-Tender, No Organomegaly, No Distention, No Abnormal Bruit, No Mass Back Exam: Reports: Normal Inspection Extremities: Normal Inspection, Normal Range of Motion, Non-Tender, No Pedal Edema, Normal Capillary Refill Skin: Reports: Warm, Dry, Intact Psy/Mental Status: Reports: Alert, Normal Affect, Normal Mood
== END 2019-11-21 14:40 | disposition home or self-care (01) | DRG 291 ==
LOC: JD.ED 12:35 → JD.ICU 16:42
PROVIDERS: ADMIT Internal Medicine; ATTEND Internal Medicine
DX: I50.83 High output heart failure (principal); J96.01 Acute respiratory failure with hypoxia; I48.91 Unspecified atrial fibrillation; G47.30 Sleep apnea, unspecified; D75.89 Other specified diseases of blood and blood-forming organs; E66.9 Obesity, unspecified; D45 Polycythemia vera; D75.1 Secondary polycythemia; Z79.899 Other long term (current) drug therapy; Z68.34 Body mass index [BMI] 34.0-34.9, adult; Z79.82 Long term (current) use of aspirin; Z20.828 Contact with and (suspected) exposure to other viral communicable diseases
CPT/HCPCS: 36415; 71046; 80053; 83735; 83880; 84100; 84439; 84443; 84484; 85007; 85027; 85610; 85730; 93005; 96365; 96366; 96375; 96376; 99285; J1940; J3490 ×2; J7050; 36600; 71275; 71275-26; 80048; 82803; 85025; 93010; 93306; 99222; 99232; 99239; 99284; A9270-GY; J1650; J3475; Q9967; U0001; U0002

== ENCOUNTER 2020-11-06 15:11 | Emergency (ER) | payer MEDICARE, BC ==
[2020-11-06] MEDS ORDERED: Lidocaine 1% 10 ML MDV INJECT ONE ×2 (15:36)
[2020-11-06] MEDS ORDERED: Lidocaine 1% 10 ML MDV ONE (15:36)
[2020-11-06] MEDS ORDERED: Acetaminophen 325 MG Tab PO ONE (16:04)
--- NOTE | 2020-11-06 17:39 | EDM.PDOC ---
ED HPI GENERAL MEDICAL PROBLEM - General Chief Complaint: Trauma Stated Complaint: HEAD LAC Time Seen by Provider: 11/06/20 15:18 Source of Information: Reports: Patient, RN Notes Reviewed - History of Present Illness INITIAL COMMENTS - FREE TEXT/NARRATIVE: 70 yr old female tripped and fell in her garage as she was headed for car door to [facility]. They think she tripped going down a step into the garage. She fell against the side of their pickup truck also in the garage. She was dazed for a couple of minutes. Did not suffer complete LOC. She has moderate Jaimes on arrival to ED. There has been no nausea or vomiting. She did hit her R elbow but it does not feel broken. No chest pain or difficulty breathing. No major neck or back discomfort. She is on xarelto for previous a fib. heaed Pain Score (Numeric/FACES): 6 - Related Data Allergies Allergy/AdvReac Type Severity Reaction Status Date / Time No Known Allergies Allergy Verified 11/06/20 15:30 Home Meds: Home Meds Hydroxyurea [Hydrea] 500 mg PO DAILY 02/24/19 [History] Ascorbate Calcium [Vitamin C] 500 mg PO DAILY 11/17/19 [History] Aspirin [Halfprin] 81 mg PO DAILY 11/17/19 [History] Cholecalciferol (Vitamin D3) [Vitamin D3] 1,000 unit PO DAILY 11/17/19 [History] Fish Oil/[place]-3 Fatty Acids [Fish Oil 1,000 MG] 1,000 mg PO DAILY 11/17/19 [History] Progesterone, Micronized [Progesterone] 150 mg PO DAILY 11/17/19 [History] Rivaroxaban [Xarelto] 20 mg PO BEDTIME #30 tablet 11/21/19 [Rx] dilTIAZem HCL [Tiadylt ER] 300 mg PO DAILY #30 cap.sa.24h 11/21/19 [Rx] Past Medical History - Past Health History Medical/Surgical History: Denies Medical/Surgical History HEENT History: Reports: Impaired Vision Cardiovascular History: Reports: Afib Musculoskeletal History: Reports: Arthritis Hematologic History: Reports: Polycythemia, Other (See Below) Other Hematologic History: hydrea - Infectious Disease History Infectious Disease History: Reports: Chicken Pox, Measles, Mumps Other Infectious Disease History: has had both covid vaccines november 2020 - Past Surgical History HEENT Surgical History: Reports: Eye Surgery, Tonsillectomy, Other (See Below) Other HEENT Surgeries/Procedures: Eye lid surgery Female Surgical History: Reports: Oophorectomy Other Female Surgeries/Procedures: R orvary removed Musculoskeletal Surgical History: Reports: Knee Replacement Other Musculoskeletal Surgeries/Procedures:: R knee 2018 Social & Family History - Family History Family Medical History: No Pertinent Family History - Tobacco Use Tobacco Use Status *Q: Never Tobacco User - Caffeine Use Caffeine Use: Reports: Coffee, Tea - Recreational Drug Use Recreational Drug Use: No Review of Systems - Review of Systems Review Of Systems: See Below Constitutional: Reports: No Symptoms Eyes: Reports: No Symptoms Ears: Reports: No Symptoms Nose: Reports: No Symptoms Mouth/Throat: Reports: No Symptoms Respiratory: Denies: Shortness of Breath, Pleuritic Chest Pain Cardiovascular: Denies: Chest Pain GI/Abdominal: Denies: Abdominal Pain, Nausea, Vomiting Musculoskeletal: Reports: Joint Pain (R elbow, mild) Skin: Reports: Other (laceration injury posterior scalp) Neurological: Reports: Headache. Denies: Numbness, Tingling, Trouble Speaking, Difficulty Walking ED EXAM, GENERAL - Physical Exam Exam: See Below General Appearance: Alert, No Apparent Distress Eye Exam: Bilateral Eye: PERRL Ear Exam: Bilateral Ear: Auricle Normal Nose: Normal Inspection Throat/Mouth: Normal Inspection Head: Other (2.5 cm stellate laceration posterior scalp and adjacent 1 cm laceration, mild oozing of blood) Neck: Non-Tender Respiratory/Chest: No Respiratory Distress, Lungs Clear, Normal Breath Sounds, Chest Non-Tender Cardiovascular: Regular Rate, Rhythm GI/Abdominal: Non-Tender Back Exam: No: Vertebral Tenderness Extremities: Other (very small abrasion R post. elbow, no bony tenderness, good and full ROM without discomfort) Neurological: Alert, Oriented, No Motor/Sensory Deficits, Other (normal speech pattern) Skin Exam: Warm, Dry, Normal Color ED TRAUMA PROCEDURES - Laceration/Wound Repair Occipital Head Lac/Wound Length In cm: 2.5 Appearance: Stellate Distal NVT: Neuro & Vascular Intact Anesthetic Type: Local Local Anesthesia - Lidocaine (Xylocaine): 1% Plain Skin Prep: Saline Exploration/Debridement/Repair: Minimal Debridement Suture Size: 3-0 # of Sutures: 5 Course - Vital Signs Last Recorded V/S: Last Vital Signs Temp 97.4 F 11/06/20 15:24 Pulse 67 11/06/20 15:24 Resp 14 11/06/20 15:32 BP 140/95 H 11/06/20 15:32 Pulse Ox 95 11/06/20 15:32 - Orders/Labs/Meds Orders: Active Orders 24 hr Category Date Time Status Head wo Cont [CT] Stat Exams 11/06/20 16:04 Taken Meds: Medications Discontinued Medications Generic Name Dose Route Start Last Admin Trade Name Nicholas PRN Reason Stop Dose Admin Acetaminophen 975 mg 11/06/20 16:04 11/06/20 16:10 Tylenol PO 11/06/20 16:05 975 mg NOW ONE Administration Lidocaine HCl 10 ml 11/06/20 15:36 11/06/20 15:38 Xylocaine 1% INJECT 11/06/20 15:37 10 ml ONETIME ONE Administration Lidocaine HCl 10 ml 11/06/20 15:36 11/06/20 15:38 Xylocaine 1% INJECT 11/06/20 15:37 Not Given ONETIME ONE Lidocaine HCl Confirm 11/06/20 15:36 11/06/20 15:43 Xylocaine 1% Administered 11/06/20 15:37 Not Given Dose 10 ml .ROUTE .STK-MED ONE - Re-Assessments/Exams Free Text/Narrative Re-Assessment/Exam: 11/06/20 18:31 Laceration #2 also posterior occipital scalp. Anesth. with 1 % lidocaine. Two 3-0 ethilon sutures. Pressure dressing applied to head. Head CT normal. Have given tylenol. Remains neurologically intact. Jaimes much better at time of discharge. Departure - Departure Time of Disposition: 17:36 Disposition: Home, Self-Care 01 Condition: Fair Clinical Impression: Fall, Scalp laceration, Concussion - Discharge Information Referrals: Gris Bridges MD [Primary Care Provider] - Forms: ED Department Discharge Additional Instructions: Laceration care instructions. Stitches out in about 10 to 12 days. Call clinic for appointment. Pressure dressing for 24 to 48 hours. Tylenol q 6 to 8 hours as needed for headache or other discomfort. Do not take your xarelto tonight or tomorrow evening. Resume xarelto Sunday unless otherwise directed. Return to ED as needed if symptoms worsening in any way. Sepsis Event Note (ED) - Evaluation Sepsis Screening Result: No Definite Risk - Focused Exam Vital Signs: Vital Signs Temp Pulse Resp BP Pulse Ox 11/06/20 15:32 14 140/95 H 95 11/06/20 15:24 97.4 F 67 20 160/95 H 100 - My Orders Last 24 Hours: My Active Orders 11/06/20 16:04 Head wo Cont [CT] Stat - Assessment/Plan Last 24 Hours: My Active Orders 11/06/20 16:04 Head wo Cont [CT] Stat
--- NOTE | 2020-11-07 11:07 | CT ---
Head CT Technique: Multiple axial sections through the brain were obtained. Reconstructed coronal and sagittal images were obtained. Intravenous contrast was not utilized. Comparison: No prior intracranial imaging is available. Findings: Ventricles along with basal cisterns and sulci over the convexities are within normal limits for the patient's age. No abnormal parenchymal densities are seen. No evidence of intracranial hemorrhage is seen. No midline shift or mass-effect is appreciated. Soft tissue swelling and hematoma is noted posteriorly on the left side within the scalp. Bone window settings were reviewed which show no acute calvarial abnormality. Visualized mastoid sinuses and paranasal sinuses show nothing acute. Impression: 1. Soft tissue swelling and hematoma within the posterior left scalp. 2. No acute intracranial abnormality is identified. Diagnostic code #3 I agree with preliminary report issued by [facility] report finalized on 11/06/20, 6:25 PM [employer]AX COLLECTION COORDINATOR
== END 2020-11-06 17:45 | disposition home or self-care (01) ==
LOC: JD.ED 15:11
DX: S06.0X9A Concussion with loss of consciousness of unspecified duration, initial encounter (principal); S01.01XA Laceration without foreign body of scalp, initial encounter; M25.521 Pain in right elbow; I48.91 Unspecified atrial fibrillation; M19.90 Unspecified osteoarthritis, unspecified site; Z79.01 Long term (current) use of anticoagulants; Z79.82 Long term (current) use of aspirin; Z79.899 Other long term (current) drug therapy; W01.0XXA Fall on same level from slipping, tripping and stumbling without subsequent striking against object, initial encounter; Y92.59 Other trade areas as the place of occurrence of the external cause
CPT/HCPCS: 12002; 70450; 99283; A9270; 12001

== ENCOUNTER 2023-01-21 20:35 | Emergency (ER) | payer MEDICARE, BC ==
[2023-01-21] MEDS ORDERED: fentaNYL 100 MCG/2 ML SDV IVPUSH ONE (20:53)
[2023-01-21 21:09] LABS: EOSINOPHILS ABSOLUTE AUTO 0.01 K/mm3 (0.04-0.36); EOSINOPHILS PERCENT AUTO 0.1 (0.7-5.8); HEMATOCRIT 42.8 % (34.1-44.9); HEMOGLOBIN 13.9 gm/dl (11.2-15.7); IMMATURE GRAN ABSOLUTE AUTO 0.02 K/mm3 (0.00-0.10); IMMATURE GRAN PERCENT AUTO 0.2 % (<=1.0); LYMPHOCYTES ABSOLUTE AUTO 1.05 K/mm3 (1.18-3.74); LYMPHOCYTES PERCENT AUTO 8.6 % (19.3-51.7); MEAN CORPUSCULAR HEMOGLOBIN 33.3 pg (25.6-32.2); MEAN CORPUSCULAR HGB CONC 32.5 g/dl (32.2-35.5); MEAN CORPUSCULAR VOLUME 102.4 fl (79.4-94.8); MEAN PLATELET VOLUME 10.2 fl (9.4-12.3); MONOCYTES ABSOLUTE AUTO 0.91 K/mm3 (0.24-0.36); MONOCYTES PERCENT AUTO 7.4 % (4.7-12.5); NEUTROPHILS ABSOLUTE AUTO 10.24 K/mm3 (1.56-6.13); NEUTROPHILS PERCENT AUTO 83.7 % (34.0-71.1); PLATELET COUNT,PLT 551 K/mm3 (182-369); RED BLOOD CELL COUNT 4.18 M/mm3 (3.98-5.22); WHITE BLOOD CELL COUNT,WBC 12.23 K/mm3 (3.98-10.04)
[2023-01-21] MEDS: Sodium Chloride 0.9% 10 ML Syringe FLUSH PRN (21:12)
[2023-01-21 21:26] LABS: INR 1.3; PROTHROMBIN TIME 13.6 SECONDS (9.7-12.0)
[2023-01-21 21:27] LABS: PTT,PARTIAL THROMBOPLSTIN TIME 34.2 SECONDS (21.7-31.4)
[2023-01-21 21:41] LABS: A/G RATIO 1.1 (1-2); ALBUMIN 3.8 g/dl (3.4-5.0); ANION GAP 10.1 (5-15); BILIRUBIN TOTAL 0.3 mg/dL (0.2-1.0); BUN/CREATININE RATIO 28.2 (14-18); CALCIUM 8.6 mg/dL (8.5-10.1); CREATININE 1.1 mg/dL (0.55-1.02); EST CRCL DRUG DOSING (CG) 43.28 mL/min; MAGNESIUM 2.3 mg/dL (1.8-2.4); POTASSIUM,K 4.1 mEq/L (3.5-5.1); PROTEIN TOTAL,TP 7.4 g/dl (6.4-8.2)
[2023-01-21] MEDS ORDERED: Alum Hydrox/Mag Hydrox/Simeth 30 ML, Lidocaine 2% 15 ML PO STA ×2 (22:55)
[2023-01-22] MEDS ORDERED: fentaNYL 100 MCG/2 ML SDV IVPUSH ONE ×3 (02:56→06:46)
[2023-01-22] MEDS ORDERED: Sodium Chloride 0.9% 10 ML Syringe FLUSH ONE (07:19)
[2023-01-22] MEDS ORDERED: Iopamidol 612 MG/ML 100 ML Bottle IVPUSH ONE (07:19)
[2023-01-22] MEDS ORDERED: Sodium Chloride 0.9% 1,000 ML IV SCH (07:30)
[2023-01-22] MEDS ORDERED: Sodium Chloride 0.9% 100 ML IV SCH (07:30)
[2023-01-22] MEDS ORDERED: HYDROmorphone 0.5 MG/0.5 ML Syringe IVPUSH ONE (08:17)
[2023-01-22] MEDS ORDERED: Heparin Sodium 5,000 Units/ML Vial IVPUSH ONE (08:17)
[2023-01-22] MEDS ORDERED: Nitroglycerin/D5W 25 MG/250 ML BOTTLE IV SCH (08:30)
[2023-01-22] MEDS ORDERED: Heparin Sodium/D5W 25,000 UNITS/500 ML BAG IV SCH (08:30)
[2023-01-22] MEDS: Sodium Chloride 0.9% 10 ML Syringe FLUSH PRN (08:32)
[2023-01-22] MEDS ORDERED: Aspirin 81 MG Tab.Chew PO ONE (08:38)
== END 2023-01-22 10:47 ==
LOC: JD.ED 20:35
DX: I21.4 Non-ST elevation (NSTEMI) myocardial infarction (principal); I48.91 Unspecified atrial fibrillation; M19.90 Unspecified osteoarthritis, unspecified site; Z79.82 Long term (current) use of aspirin; Z79.01 Long term (current) use of anticoagulants
CPT/HCPCS: 36415; 71045; 74177; 80053; 83690; 83735; 83880; 84484; 85025; 85610; 85730; 93005; 96365; 96366; 96368; 96375; 96376; 99285; A9270; J1170; J1644; J3010; J3490; Q9967; 93010

== ENCOUNTER 2023-04-29 16:20 | Inpatient (IN) | payer MEDICARE, BC ==
[2023-04-29] MEDS ORDERED: Metoprolol Tartrate 5 MG/5 ML SDV IVPUSH ONE ×2 (17:13→17:39)
[2023-04-29 17:15] LABS: BASOPHILS PERCENT AUTO 0.1 % (0.0-1.0); HEMATOCRIT 41.7 % (37.0-47.0); HEMOGLOBIN 13.9 gm/dl (12.0-16.0); IMMATURE GRAN ABSOLUTE AUTO 0.06 K/mm3 (0.00-0.05); IMMATURE GRAN PERCENT AUTO 0.5 % (0.0-0.4); LYMPHOCYTES ABSOLUTE AUTO 1.1 K/mm3 (1.0-4.8); LYMPHOCYTES PERCENT AUTO 9.6 % (24.0-44.0); MEAN CORPUSCULAR HEMOGLOBIN 34.2 pg (28.0-32.0); MEAN CORPUSCULAR HGB CONC 33.3 g/dl (32.0-36.0); MEAN CORPUSCULAR VOLUME 102.5 fl (83.0-99.0); MEAN PLATELET VOLUME 10.2 fl (9.4-12.3); MONOCYTES PERCENT AUTO 9.2 % (0.0-8.0); NEUTROPHILS ABSOLUTE AUTO 9.1 K/mm3 (1.8-7.7); NEUTROPHILS PERCENT AUTO 80.6 % (41.0-71.0); PLATELET COUNT,PLT 559 K/mm3 (150-400); RED BLOOD CELL COUNT 4.07 M/mm3 (4.10-5.30); WHITE BLOOD CELL COUNT,WBC 11.25 K/mm3 (3.9-11.3)
[2023-04-29 17:22] LABS: INR 1.09; PROTHROMBIN TIME 11.6 SECONDS (9.7-12.0)
[2023-04-29 17:24] LABS: PTT,PARTIAL THROMBOPLSTIN TIME 29.2 SECONDS (21.7-31.4)
[2023-04-29 17:34] LABS: ALBUMIN 3.6 g/dl (3.4-5.0); ANION GAP 14.1 (5-15); BILIRUBIN TOTAL 0.2 mg/dL (0.2-1.0); BUN/CREATININE RATIO 24.5 (14-18); CALCIUM 8.9 mg/dL (8.5-10.1); CREATININE 1.1 mg/dL (0.55-1.02); EST CRCL DRUG DOSING (CG) 43.28 mL/min; MAGNESIUM 1.9 mg/dL (1.8-2.4); POTASSIUM,K 4.1 mEq/L (3.5-5.1); PROTEIN TOTAL,TP 7.1 g/dl (6.4-8.2); TSH 2.146 uIU/mL (0.358-3.74)
[2023-04-29] MEDS ORDERED: Magnesium Oxide 400 MG Tab PO ONE (17:37)
[2023-04-29] MEDS ORDERED: Ondansetron 4 MG/2 ML SDV IV PRN (20:22)
[2023-04-29] MEDS ORDERED: Acetaminophen 325 MG Tab PO PRN (20:22)
[2023-04-29] MEDS ORDERED: Ondansetron 4 MG Tab.DIS PO PRN (20:22)
[2023-04-29] MEDS ORDERED: Docusate Sodium 100 MG Cap PO PRN (20:22)
[2023-04-29] MEDS ORDERED: Non-Formulary Medication 1 Each (Rosuvastatin 5 MG Tablet) PO SCH (20:30)
[2023-04-29] MEDS: Metoprolol Tartrate 25 MG Tab PO SCH (21:08)
[2023-04-29] MEDS: Rivaroxaban 10 MG Tab PO SCH (21:09)
[2023-04-29] MEDS ORDERED: Diltiazem 125 MG in Sodium Chloride 0.9% 100 ML IV SCH (23:00)
[2023-04-30] MEDS ORDERED: traZODone 50 MG Tab PO PRN (01:37)
[2023-04-30] MEDS: Metoprolol Tartrate 25 MG Tab PO SCH ×2 (07:42→21:11)
[2023-04-30] MEDS: Hydroxyurea 500 MG Cap PO SCH (09:05)
[2023-04-30] MEDS: Rosuvastatin 10 MG Tab PO SCH (09:05)
[2023-04-30] MEDS ORDERED: Diltiazem IR 30 MG Tab PO SCH (14:00)
[2023-04-30] MEDS: Diltiazem IR 60 MG Tab PO SCH ×2 (14:18→21:11)
[2023-04-30] MEDS: Rivaroxaban 10 MG Tab PO SCH (21:11)
[2023-05-01] MEDS: Diltiazem IR 60 MG Tab PO SCH (06:37)
[2023-05-01] MEDS: Rosuvastatin 10 MG Tab PO SCH (08:07)
[2023-05-01] MEDS: Metoprolol Tartrate 25 MG Tab PO SCH (08:07)
[2023-05-01] MEDS: Hydroxyurea 500 MG Cap PO SCH (08:08)
[2023-05-01] MEDS ORDERED: Diltiazem 240 MG Cap.ER PO ONE (12:00)
== END 2023-05-01 12:43 | disposition home or self-care (01) | DRG 310 ==
LOC: JD.ED 16:20 → JD.ICU 20:22
PROVIDERS: ADMIT Hospitalist; ATTEND Hospitalist
DX: I48.91 Unspecified atrial fibrillation (principal); E78.00 Pure hypercholesterolemia, unspecified; M19.90 Unspecified osteoarthritis, unspecified site; E03.9 Hypothyroidism, unspecified; I25.10 Atherosclerotic heart disease of native coronary artery without angina pectoris; D75.89 Other specified diseases of blood and blood-forming organs; Z96.659 Presence of unspecified artificial knee joint; I25.2 Old myocardial infarction; Z79.01 Long term (current) use of anticoagulants; Z79.02 Long term (current) use of antithrombotics/antiplatelets; Z79.899 Other long term (current) drug therapy; Z79.82 Long term (current) use of aspirin; Z86.16 Personal history of COVID-19; Z90.89 Acquired absence of other organs; Z98.890 Other specified postprocedural states; Z90.722 Acquired absence of ovaries, bilateral; Z98.61 Coronary angioplasty status
CPT/HCPCS: 36415; 71045; 71045-26; 80053; 83735; 84443; 84484; 85025; 85610; 85730; 93010; 93307; 96374; 99285; 99285-25; A9270-GY; J3490